=== PATIENT | male | born 1970 | race African-American/Black ===

== ENCOUNTER 2018-01-16 03:08 | Emergency (ER) | payer OTHER ==
[~2018-01-16] VITALS: Ht 175.3 cm; Wt 95.3 kg
[~2018-01-16 03:08] MED LIST: AMOXICILLIN 50500 M1 PO; APAP/CODEINE ELI5 M1 OR; IBUPROFEN 800800 MG PO; LISINOPRIL10 MG PO; NORCO 5-325 TA1 EACH PO; VENTOLIN HFA 1818 GM INH; ZPAK PO
[2018-01-16 03:34] LABS: URINE BILIRUBIN NEGATIVE (Negative); URINE BLOOD 3+ (Negative); URINE CLARITY CLEAR; URINE COLOR YELLOW; URINE GLUCOSE-RANDOM* NEGATIVE (Negative); URINE KETONES NEGATIVE (Negative); URINE LEUKOCYTES-REFLEX NEGATIVE (Negative); URINE NITRITE-REFLEX NEGATIVE (Negative); URINE PROTEIN (DIPSTICK) NEGATIVE (Negative); URINE UROBILINOGEN 0.2 E.U./dl (0.2-1.0)
[2018-01-16 04:00] VITALS: BP 175/100
[2018-01-16 04:01] LABS: SQUAMOUS None Seen /LPF (0-3)
[2018-01-16 04:02] LABS: BACTERIA-REFLEX None Seen /HPF (None Seen); CASTS None Seen /LPF (None Seen); CRYSTALS None Seen /LPF (None Seen); MUCUS 0-3 Light strn/LPF (None Seen); URINE RBC >20 Many /HPF (0-2); URINE WBC-REFLEX None Seen /HPF (0-5)
[2018-01-16 04:34] LABS: ABSOLUTE NEUTROPHILS 5.4 thou/uL (1.4-8.2); BASOPHILS 1.2 % (0.0-2.0); EOSINOPHILS 2.4 % (0.0-3.0); HEMATOCRIT 41.7 % (42.0-52.0); HEMOGLOBIN 14.2 gm/dL (14.0-18.0); LYMPHOCYTES 23.6 % (24.0-44.0); MCH 28.5 pg (26.0-34.0); MCV 83.6 fL (80.0-100.0); PLATELET COUNT 278 thou/uL (150-400); POLYS 65.8 % (36.0-66.0); RBC 4.98 mil/uL (4.50-6.00); RDW 13.4 % (10.5-14.5); WBC 8.1 thou/uL (4.0-11.0)
[2018-01-16 04:38] LABS: CALCIUM 8.7 mg/dL (8.5-10.1); CREATININE 1.2 mg/dL (0.7-1.3); POTASSIUM 3.9 mmol/L (3.5-5.1)
[2018-01-17] MEDS ORDERED: HYDROCHLOROTHIA25 M2 PO (13:47)
[2018-01-17] MEDS ORDERED: BACTRIM DS TAB1 EACH PO (13:47)
== END 2018-01-16 04:56 | disposition home or self-care (01) ==
LOC: ER 03:08
PROVIDERS: Emergency Medicine
DX: R31.9 Hematuria, unspecified (principal); F17.210 Nicotine dependence, cigarettes, uncomplicated; I10 Essential (primary) hypertension

== ENCOUNTER 2018-01-17 13:16 | Emergency (ER) | payer OTHER ==
[~2018-01-17] VITALS: Ht 175.3 cm; Wt 95.3 kg
[2018-01-17 13:29] LABS: URINE BILIRUBIN NEGATIVE (Negative); URINE BLOOD 3+ (Negative); URINE CLARITY TURBID; URINE COLOR RED; URINE GLUCOSE-RANDOM* NEGATIVE (Negative); URINE KETONES TRACE (Negative); URINE PROTEIN (DIPSTICK) 2+ (Negative)
[2018-01-17 13:32] LABS: URINE LEUKOCYTES-REFLEX 1+ (Negative); URINE NITRITE-REFLEX POSITIVE (Negative)
[2018-01-17 13:34] LABS: CASTS None Seen /LPF (None Seen); CRYSTALS None Seen /LPF (None Seen); SQUAMOUS None Seen /LPF (0-3); URINE RBC >20 Many /HPF (0-2)
[2018-01-17 13:35] LABS: BACTERIA-REFLEX 1-9 Few /HPF (None Seen); URINE WBC-REFLEX 0-5 Rare /HPF (0-5)
[2018-01-17] MEDS ORDERED: BACTRIM DS TAB1 EACH PO (13:47)
[2018-01-17] MEDS ORDERED: HYDROCHLOROTHIA25 M2 PO (13:47)
[2018-01-17 14:31] VITALS: BP 169/103
== END 2018-01-17 15:28 | disposition home or self-care (01) ==
LOC: ER 13:16
PROVIDERS: Physician Assistant
DX: N39.0 Urinary tract infection, site not specified (principal); R31.9 Hematuria, unspecified; I10 Essential (primary) hypertension; F17.210 Nicotine dependence, cigarettes, uncomplicated

== ENCOUNTER 2018-04-10 17:53 | Emergency (ER) | payer OTHER ==
[~2018-04-10] VITALS: Ht 175.3 cm; Wt 95.3 kg
[~2018-04-10 17:53] MED LIST changes: +BACTRIM DS TAB1 EACH PO; +HYDROCHLOROTHIA25 M2 PO
[2018-04-10 18:11] LABS: URINE BILIRUBIN NEGATIVE (Negative); URINE BLOOD 2+ (Negative); URINE CLARITY CLEAR; URINE COLOR YELLOW; URINE GLUCOSE-RANDOM* NEGATIVE (Negative); URINE KETONES NEGATIVE (Negative); URINE LEUKOCYTES-REFLEX NEGATIVE (Negative); URINE NITRITE-REFLEX NEGATIVE (Negative); URINE PROTEIN (DIPSTICK) NEGATIVE (Negative); URINE SPECIFIC GRAVITY 1.015 (1.005-1.035)
[2018-04-10 18:32] LABS: BACTERIA-REFLEX None Seen /HPF (None Seen); CASTS None Seen /LPF (None Seen); CRYSTALS None Seen /LPF (None Seen); SQUAMOUS None Seen /LPF (0-3); URINE RBC 3-10 Few /HPF (0-2); URINE WBC-REFLEX None Seen /HPF (0-5)
[2018-04-10 19:29] LABS: ABSOLUTE NEUTROPHILS 4.3 thou/uL (1.4-8.2); BASOPHILS 2.4 % (0.0-2.0); EOSINOPHILS 2.4 % (0.0-3.0); HEMATOCRIT 40.5 % (42.0-52.0); HEMOGLOBIN 13.4 gm/dL (14.0-18.0); LYMPHOCYTES 29.9 % (24.0-44.0); MCH 28.3 pg (26.0-34.0); MCHC 33.1 g/dL (28.0-37.0); MCV 85.4 fL (80.0-100.0); MONOCYTES 6.5 % (1.0-8.0); PLATELET COUNT 255 thou/uL (150-400); POLYS 58.8 % (36.0-66.0); RBC 4.74 mil/uL (4.50-6.00); RDW 13.6 % (10.5-14.5); WBC 7.3 thou/uL (4.0-11.0)
[2018-04-10 19:33] LABS: CALCIUM 8.8 mg/dL (8.5-10.1); CREATININE 1.1 mg/dL (0.7-1.3); POTASSIUM 3.8 mmol/L (3.5-5.1)
[2018-04-10 19:39] LABS: PROTIME 10.7 Seconds (9.3-11.4)
[2018-04-10 20:24] VITALS: BP 129/77
== END 2018-04-10 20:24 | disposition home or self-care (01) ==
LOC: ER 17:53
PROVIDERS: Student in an Organized Health Care Education/Training Program
DX: R31.9 Hematuria, unspecified (principal); I10 Essential (primary) hypertension; F17.210 Nicotine dependence, cigarettes, uncomplicated

== ENCOUNTER 2019-03-11 14:54 | Emergency (ER) | payer OTHER ==
[~2019-03-11] VITALS: Ht 175.3 cm; Wt 95.3 kg
[2019-03-11 15:18] VITALS: BP 210/130
[2019-03-11] MEDS ORDERED: NEOMYC-POLYM-DEX5 ML OPHTHALMIC (18:22)
[2019-03-11] MEDS ORDERED: MICROZIDE12.5 MG PO (18:25)
--- NOTE | 2019-03-12 10:52 | EKG ---
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1970 Requested By: Olivia Gomez Order Number: [id number] MD: Patricio Medina Measurements Intervals [place] Rate: 64 P: 42 [place]: 173 QRS: 41 QRSD: 89 T: 17 QT: 398 QTc: 411 Interpretive Statements Sinus rhythm Left ventricular hypertrophy ST elev, probable normal early repol pattern Baseline wander in lead(s) V2 No previous ECG available for comparison Electronically Signed On 03-12-2019 10:51:48 SHEARER HELPER by Patricio Medina [email or web address] <ELECTRONICALLY SIGNED> By: Patricio Medina MD 03/12/19 1051 [address] [facility] Patricio Medina MD /JORGE LUIS
== END 2019-03-11 19:55 | disposition home or self-care (01) ==
LOC: ER 14:54
DX: H10.9 Unspecified conjunctivitis (principal); I10 Essential (primary) hypertension

== ENCOUNTER 2019-09-28 05:02 | Inpatient (IN) | payer OTHER ==
[~2019-09-28] VITALS: Ht 175.3 cm; Wt 98.4 kg
[~2019-09-28 05:02] MED LIST changes: +MICROZIDE12.5 MG PO; +NEOMYC-POLYM-DEX5 ML OPHTHALMIC
[2019-09-28 05:04] VITALS: BP 231/131
[2019-09-28] MEDS ORDERED: HYDROCHLOROTHIA25 M2 PO (05:16)
[2019-09-28 05:49] LABS: ABSOLUTE NEUTROPHILS 4.6 thou/uL (1.4-8.2); BASOPHILS 1.2 % (0.0-2.0); EOSINOPHILS 4.8 % (0.0-3.0); HEMATOCRIT 42.2 % (42.0-52.0); LYMPHOCYTES 30.8 % (24.0-44.0); MCH 28.8 pg (26.0-34.0); MCHC 33.2 g/dL (28.0-37.0); MCV 86.9 fL (80.0-100.0); MONOCYTES 8.4 % (1.0-8.0); PLATELET COUNT 260 thou/uL (150-400); POLYS 54.8 % (36.0-66.0); RBC 4.86 mil/uL (4.50-6.00); RDW 13.4 % (10.5-14.5); WBC 8.3 thou/uL (4.0-11.0)
[2019-09-28 05:58] LABS: ANION GAP 6 mmol/L (7-16); BUN 14 mg/dL (7-18); CALCIUM 8.5 mg/dL (8.5-10.1); CHLORIDE 103 mmol/L (98-107); CO2 31 mmol/L (21-32); CREATININE 1.5 mg/dL (0.7-1.3); GLUCOSE 87 mg/dL (74-106); POTASSIUM 3.5 mmol/L (3.5-5.1); SODIUM 140 mmol/L (136-145)
[2019-09-28 06:08] LABS: ALBUMIN 3.8 g/dL (3.4-5.0); MAGNESIUM 2.3 mg/dL (1.8-2.4); SGOT 17 U/L (15-37); SGPT 29 U/L (30-65); TOTAL BILIRUBIN 0.4 mg/dL (0.2-1.0); TOTAL PROTEIN 7.6 g/dL (6.4-8.2); TROPONIN-I <0.06 ng/mL (<0.06)
[2019-09-28 06:09] LABS: APTT 33.6 Seconds (24.5-32.8); PROTIME 10.1 Seconds (9.3-11.4)
[2019-09-28 06:10] LABS: D-DIMER < 0.19 ug/mLFEU (0.19-0.50)
[2019-09-28] MEDS ORDERED: NORVASC10 MG PO (07:49)
[2019-09-28 10:46] VITALS: BP 133/84
[2019-09-28 11:15] VITALS: BP 137/79
[2019-09-28 11:49] VITALS: BP 143/98
[2019-09-28 16:09] VITALS: BP 146/98
--- NOTE | 2019-09-28 19:37 | NUR ---
PT'S COVID WAS NEGATIVE FROM 09/28/19 0555AM TEST, PT DOES NOT HAVE SOB AND FEVER , PT'S COVID ISOLATION IS OFF AT THIS TIME PER ORDER.
--- NOTE | 2019-09-28 19:39 | NUR ---
PT ADMITTED FROM ER FOR COUGHING AND HEMOPTYSIS, PT IS A&OX3, PT'S VS ARE STABLE , PT IS ON ROOM AIR , HOSPITAL DR AND PULMONOLOGY DR HAVE SEEING THE PT, NEW ORDER RECEIVED, PT STRATS 24HR URINE TEST AT 1800PM, RN HAS REPORTED TO NEXT SHIFT.
[2019-09-29 02:57] VITALS: BP 160/93
[2019-09-29 05:30] LABS: HEMATOCRIT 39.4 % (42.0-52.0); HEMOGLOBIN 13.4 gm/dL (14.0-18.0); MCH 29.7 pg (26.0-34.0); MCHC 34.1 g/dL (28.0-37.0); MCV 87.1 fL (80.0-100.0); RBC 4.52 mil/uL (4.50-6.00); RDW 13.5 % (10.5-14.5); WBC 8.2 thou/uL (4.0-11.0)
[2019-09-29 06:29] LABS: CALCIUM 8.2 mg/dL (8.5-10.1); POTASSIUM 3.5 mmol/L (3.5-5.1)
--- NOTE | 2019-09-29 06:43 | NUR ---
PT UP AD ANETA, 800 ML URINE OUT AND PLACED IN CONTAINER FOR 24HR URINE LAB. IVF GTT AT 80. PT HAS NO COMPLAINTS, AND VSS. PT IS COVID -.
[2019-09-29 08:00] VITALS: BP 154/84
--- NOTE | 2019-09-29 08:16 | EKG ---
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
--- NOTE | 2019-09-29 11:11 | NUR ---
assumed patient at 0700. a/o 4. no sob. denies pain. up ad yonathan. covid negative. transfer to 213 now.
[2019-09-29 12:50] VITALS: BP 156/87
[2019-09-29 16:30] VITALS: BP 154/101
--- NOTE | 2019-09-29 19:40 | NUR ---
PT. ARRIVED AT FLOOR AROUND 1300; PT. AOX4; ABLE TO AMBULATE INDEPENDENTLY; 24 H URINE COLLECTION; EDUCATED ABOUT CALLING AFTER VOIDING; ST. UNDERSTANDING; EDUCATED ABOUT VISITORS POLICY; ST. UNDERSTANDING; SPOUSE EDUCATED ABOUT IT TOO; ST. UNDERSTANDING; NO C/O PAIN; SB ON THE MONITOR; URINE COLLECTION FINISHED AT 1800; ASSESSMENT CHARGED; FOLLOWING POC; PASSED ON REPORT;
[2019-09-29 20:15] VITALS: BP 155/82
[2019-09-30 00:55] VITALS: BP 162/94
--- NOTE | 2019-09-30 04:26 | NUR ---
ASSUMED PT CARE AT 1900. PT IS ALERT AND ORIENTED. NO SIGN OF DISTRESS NOTED IN PT. DENIES ANY PAIN. PT IS RESRTING COMFORTABLY IN BED. ASSESSMENT COMPLETED AND DOCUMENTED. NO SCHEDULED MEDS ADMINISTERED TO PT. PT IS STABLE THROUGH THE NIGHT. NO FURTHER NEEDS AT THIS TIME.
[2019-09-30 04:50] VITALS: BP 144/109
[2019-09-30 07:59] VITALS: BP 157/99
[2019-09-30] MEDS ORDERED: NORVASC10 MG PO ×2 (09:41→09:45)
[2019-09-30] MEDS ORDERED: HYDROCHLOROTHIA25 M2 PO ×2 (09:41→09:45)
[2019-09-30] MEDS ORDERED: LISINOPRIL10 MG PO ×2 (09:41→09:45)
[2019-09-30 09:58] VITALS: BP 157/99
--- NOTE | 2019-09-30 10:31 | NUR ---
Spoke with patient who is discharged today. He has no health insurance. he is employed, independent with adls and self care. Gave patient [facility] information and [facility]. Vouched for meds for $25 no further needs.
--- NOTE | 2019-09-30 10:39 | NUR ---
ASSUMED CARE PT SHIFT CHANGE. ASESSMENT CHARTED.MEDS GIVEN PER MAR. PT DENIES HEMOTYPSIS. DC ORDERS IMPLEMENTED. DC PAPERWORK DISCUSSED WITH PT. FAMILY UPDATED ON POC. PT UP WALKING TOLERATING WELL. SCRIPTS VOUCHED FOR BY CASE MANAGEMENT. IV REMOVED. TELE REMOVED. PT LEFT UNIT WITH ALL BELONGINGS.
[2019-10-01 13:08] LABS: GLOMERULR BASEM MEMBRN AB 2 units (0-20)
[2019-10-03 15:08] LABS: UR AMINO LEVULINIC ACID 2.7 mg/24 hr (0.5-5.1)
== END 2019-09-30 10:45 | disposition home or self-care (01) | DRG 305 ==
LOC: ER 05:02 → EROBS 10:31 → 3W 11:15 → 2N 09-29 11:02
PROVIDERS: Emergency Medicine; Internal Medicine Pulmonary Disease; ADMIT Hospitalist; ATTEND Hospitalist
DX: I16.0 Hypertensive urgency (principal); R04.2 Hemoptysis; A50.02 Early congenital syphilitic osteochondropathy; R04.89 Hemorrhage from other sites in respiratory passages; I10 Essential (primary) hypertension; R31.9 Hematuria, unspecified; N28.9 Disorder of kidney and ureter, unspecified; I77.6 Arteritis, unspecified; I95.9 Hypotension, unspecified; Z20.828 Contact with and (suspected) exposure to other viral communicable diseases; Z87.891 Personal history of nicotine dependence
CPT/HCPCS: 10081; 10879